=== PATIENT | female | born 1980 | race American Indian/Alaskan Native ===

== ENCOUNTER 2021-07-19 05:50 | Inpatient (IN) | payer OTHER ==
[2021-07-14 11:54] LABS: Basophils # (Auto) 0.1 K/mm3 (0.0-0.1); Basophils % (Auto) 0.9 % (0.0-1.8); Eosinophils # (Auto) 0.5 K/mm3 (0.0-0.4); Eosinophils % (Auto) 7.6 % (0.0-4.3); Hematocrit 32.3 % (30.3-42.9); Hemoglobin 10.8 gm/dl (10.1-14.3); Lymphocytes # (Auto) 1.2 K/mm3 (1.2-5.4); Lymphocytes % (Auto) 17.4 % (13.4-35.0); Mean Corpuscular HGB Conc 34 % (30-34); Monocytes # (Auto) 0.6 K/mm3 (0.0-0.8); Monocytes % (Auto) 8.6 % (0.0-7.3); Platelet Count 557 K/mm3 (140-440); Red Blood Count 4.68 M/mm3 (3.65-5.03); Red Cell Distribution Width 17.1 % (13.2-15.2)
[2021-07-14 12:06] LABS: Blood Urea Nitrogen 8 mg/dL (7-17); Calcium 10.1 mg/dL (8.4-10.2); Hemolysis Index 0
[2021-07-14 12:08] LABS: BUN/Creatinine Ratio 13
[2021-07-14 12:12] LABS: Mean Corpuscular Volume 69 fl (79-97)
--- NOTE | 2021-07-18 14:14 | History and Physical Report ---
History of Present Illness Date of examination: 07/12/21 Date of admission: 07/19/21 Chief complaint: heavy bleeding History of present illness: Pt c/o having fibroids and heavy bleeding and h/o anemia desires definitive therapy via abdominal hysterectomy. HTN DM Social History: Reviewed history from 06/21/2018 and no changes required: Patient is Smoking History: Patient is a former smoker. NO E/T/D Risk Factors: Smoked Tobacco Use: Former smoker Smokeless Tobacco Use: Never HIV High Risk Behavior: no Exercise: yes Seatbelt Use: 100 % [ROS-CCC] Laboratory Results Urine HCG: negative Physical Exam Other Exams Lungs: no rales, rhonchi, or wheezes Heart: S1, S2, no murmur, rub, or gallop Abdomen: soft, non-tender, no masses, bowel sounds normal Abd Mass: mass palpaed just below the unbilicus about 2 figer breaths Skin: no ulcers, xanthomas Extremities: normal alignment, no joint enlargement, crepitus, masses or tenderness; normal tone and strength Past History Past Medical History: other (see hpi) Past Surgical History: Other (see hpi) Social history: other (see hpi) Family history: other (see hpi) Medications and Allergies Allergies Allergy/AdvReac Type Severity Reaction Status Date / Time aspirin Allergy Itching Verified 07/12/21 18:14 Home Medications Medication Instructions Recorded Confirmed Last Taken Type Aspirin [Adult Aspirin] 81 mg PO DAILY 07/15/21 07/15/21 Unknown History Dapagliflozin Propanediol [Farxiga] 25 mg PO DAILY 07/15/21 07/15/21 Unknown History Ferrous Sulfate [Feosol] 325 mg PO QDAY 07/15/21 07/15/21 Unknown History Insulin Glargine,Hum.rec.anlog 20 unit SQ HS 07/15/21 07/15/21 Unknown History [Lantus Solostar] Review of Systems All systems: negative Exam Vital Signs Temp Pulse Resp BP Pulse Ox 98.5 F 102 H 20 133/94 97 07/14/21 11:10 07/14/21 11:10 07/14/21 11:10 07/14/21 11:10 07/14/21 11:10 - Cardiovascular Rhythm: regular Heart Sounds: Present: S1 & S2 - Extremities Extremities: no ischemia - Abdomen Abdomen: Present: soft. Absent: tender, distended - Genitourinary Female Genitourinary: deferred (until EUA) - Psychiatric Psychiatric: appropriate mood/affect Results - Labs 07/14/21 06:00 07/14/21 06:00 Assessment and Plan - Patient Problems (1) Fibroids Current Visit: Yes Status: Acute Plan to address problem: -TO OR for above stated procedure -consents signed and placed on the chart. (2) Menorrhagia with regular cycle Current Visit: Yes Status: Acute Plan to address problem: -TO OR for above stated procedure -consents signed and placed on the chart.
[~2021-07-19 05:50] MED LIST: ceFAZolin/Water 2 GM/20 ML 2 GM/20 ML SYRINGE IV NR
[2021-07-19] MEDS ORDERED: fentaNYL 100 MCG/2 ML INJ ONE ×2 (06:55→07:19)
[2021-07-19] MEDS ORDERED: ONDANSETRON 4 MG/2 ML INJ ONE (06:55)
[2021-07-19] MEDS ORDERED: ROCURONIUM 50 MG/5 ML INJ IV ONE ×2 (06:55→08:32)
[2021-07-19] MEDS ORDERED: LIDOCAINE MPF (2%) 20 MG/1 ML VIAL 5 ML ONE (06:55)
[2021-07-19] MEDS ORDERED: dexAMETHasone 20 MG/5 ML VIAL ONE (06:55)
[2021-07-19] MEDS ORDERED: propofoL 200 MG/20 ML VIAL IV ONE (06:56)
[2021-07-19] MEDS ORDERED: BUPIVACAINE/PF (0.25%) 2.5 MG/ML 30 ML VIAL INFILTRATI ONE (07:18)
[2021-07-19] MEDS ORDERED: dexAMETHasone 4 MG/ML VIAL ONE (07:18)
[2021-07-19] MEDS ORDERED: MIDAZOLAM 2 MG/2 ML INJ ONE (07:19)
[2021-07-19] MEDS ORDERED: ACETAMINOPHEN 500 MG TAB ONE (07:20)
[2021-07-19] MEDS ORDERED: CELECOXIB 200 MG CAP ONE (07:20)
[2021-07-19] MEDS ORDERED: MAGNESIUM OXIDE 400 MG TAB PO ONE (07:21)
[2021-07-19] MEDS ORDERED: MAGNESIUM OXIDE 400 MG TAB PO NR (07:23)
[2021-07-19] MEDS ORDERED: ACETAMINOPHEN 500 MG TAB PO NR (07:23)
[2021-07-19] MEDS ORDERED: HYDROmorphone 1 MG/1 ML INJ IV PRN (07:24)
[2021-07-19] MEDS ORDERED: ONDANSETRON 4 MG/2 ML INJ IV PRN (07:24)
[2021-07-19] MEDS ORDERED: fentaNYL 100 MCG/2 ML INJ IV NR (07:24)
--- NOTE | 2021-07-19 07:25 | Anesthesia Day of Surgery ---
Anesthesia Day of Surgery - Day of Surgery Patient Examined: Yes Patient H&P Reviewed: Yes Patient is NPO: Yes Cardiac Clearance: Yes
[2021-07-19] MEDS: LACTATED RINGERS 1,000 ML IV SCH ×2 (07:26→23:39)
--- NOTE | 2021-07-19 07:31 | Anesthesia Consultation ---
Anesthesia Consult and Med Hx Date of service: 07/19/21 - Pre-Operative Health Status ASA Pre-Surgery Classification: ASA2 Proposed Anesthetic Plan: General Nerve Block: TAP - Pulmonary Hx Smoking: Yes (Former) Hx Pneumonia: Yes (March 2021) - Cardiovascular System Hx Hypertension: Yes Hx Coronary Artery Disease: No (Pericarditis four years ago) Hx Heart Attack/AMI: No (+Cardiac clearance; cardiac records reviewed) - Central Nervous System Hx Psychiatric Problems: No - Gastrointestinal Hx Gastroesophageal Reflux Disease: Yes - Endocrine Hx Non-Insulin Dependent Diabetes: Yes - Hematic Hx Anemia: Yes (Transfused 12/2020) Hx Sickle Cell Disease: No - Other Systems Hx Cancer: No
[2021-07-19] MEDS ORDERED: MIDAZOLAM 2 MG/2 ML INJ IV NR (08:00)
[2021-07-19] MEDS ORDERED: CELECOXIB 200 MG CAP PO NR (08:00)
[2021-07-19] MEDS ORDERED: CITRIC ACID-SOD CITRATE 500 ML IV ONE (08:33)
[2021-07-19] MEDS ORDERED: HYDROmorphone 1 MG/1 ML INJ ONE (08:35)
[2021-07-19] MEDS ORDERED: CITRIC ACID-SOD CITRATE SOLN 500 ML IV SOLN IV ONE (08:40)
[2021-07-19] MEDS ORDERED: SODIUM CHLORIDE 0.9% IRR 1,500 ML BOTTLE IR ONE (08:40)
[2021-07-19] MEDS ORDERED: NEOSTIGMINE 10MG/10 ML INJ MDV ONE (09:24)
[2021-07-19] MEDS ORDERED: GLYCOPYRROLATE 0.4 MG/2 ML INJ ONE (09:24)
--- NOTE | 2021-07-19 10:13 | Operative Report ---
Operative Report Operative Report: Date of procedure: 07/19/2021 Pre-operative diagnosis: Large uterine fibroids Menorrhagia Hypertension Diabetes Post-operative diagnosis: Same Procedure name(s): 1. Exploratory laparotomy 2. Total abdominal hysterectomy 3. Bilateral salpingectomy Surgeon: Alysia Buckner M.D. Stock Cutter: Dr. Mackenzie White Anesthesia: Gen. endotracheal anesthesia EBL: 100 mL Urine output: 400 mL of clear urine out at the end the procedure Fluids: 1500 mL Findings: Enlarged uterus with several fibroids noted largest palpated to be approximately 7 to 8 cm. Grossly normal fallopian tubes and ovaries bilaterally Indications: Patient with a long history of menorrhagia requiring blood transfusions. Patient diagnosed with uterine fibroids. Patient with failed medical therapy for the heavy menstrual bleeding. Patient desired definitive therapy via total hysterectomy. All risks benefits and alternatives were discussed with the patient. Consents were signed and placed on the chart. Procedure: Patient was taken to the operating room wishes placed under general endotracheal anesthesia. She was then prepped and draped in normal sterile fashion. With at this point that a midline umbilical incision was made through previous incisional scar. Incision was made with the scalpel and carried down to the underlying layer of fascia with the scalpel and the Bovie. The fascia was incised in the midline and this incision was extended superiorly and inf eriorly. The peritoneum was entered into sharply and this incision was extended superiorly and inferiorly. The O'Dilshad-O'Marshall retractor was placed. The bowel was packed away with moist wet laps. The uterus was exteriorized. Exploratory laparotomy was performed with the above-stated findings. The attention was turned to the round ligaments bilaterally. The round ligaments were grasped with tripolar instrument cauterized, transected with excellent hemostasis noted. The anterior leaf of the broad ligament was opened and the bladder flap was created. The bladder was dissected off of the lower uterine segment and the cervix. Attention was turned to the tubo-ovarian ligament which was cauterized and transected with excellent hemostasis noted. Attention was turned to the uterine arteries bilaterally which a similar fashion were grasped with Beatriz clamps transected and suture ligated with excellent hemostasis noted. The uterus was then amputated from the cervical stump at this point. And handed off the field. The cardinal uterosacral ligaments and likewise fashion for grasped with Beatriz clamps transected and suture ligated with excellent hemostasis noted. The Zeppelin clamps were then placed below the level of the cervix with care of and taken that the bladder had been dissected off of the lower uterine segment of the uterus. The cervix was then amputated from the vagina. The vaginal cuff angles were secured with Kiesha stitches using 0 Vicryl bilaterally. The remainder of the vaginal cuff was closed using a series of [id number] sutures using 0 Vicryl. Attention was then turned to the fallopian tubes bilaterally which were cauterized with the tripolar instrument transected and handed off for pathology. Excellent hemostasis was noted. The pelvis was then irrigated. Excellent hemostasis was noted. Izaiah l was placed along the incision line of the vaginal cuff. All instruments and laps were removed from the abdomen. All lap counts were correct at this point. The fascia was then closed using 0 Vicryl in a running fashion. The anterior rectus muscles were reapproximated using 0 Vicryl in [id number] sutures. The subcuticular fat was reapproximated with 0 Vicryl in running fashion. The skin was then closed in a subcuticular stitch using 4-0 Monocryl. The patient tolerated the procedure well. Sponge lap and needle counts were all correct 3. Patient received 2 g of Ancef prior to the onset of the procedure. Patient was taken to the recovery room awake and in stable condition.
[2021-07-19] MEDS ORDERED: traMADol 50 MG TAB PO PRN (10:20)
[2021-07-19] MEDS ORDERED: ACETAMINOPHEN 325 MG TAB PO PRN (10:20)
[2021-07-19] MEDS ORDERED: MORPHINE 2 MG/1 ML INJ IV PRN (10:20)
[2021-07-19] MEDS ORDERED: IBUPROFEN 800 MG TAB PO PRN (10:20)
[2021-07-19] MEDS ORDERED: MORPHINE 4 MG/1 ML INJ IV PRN (10:20)
[2021-07-19] MEDS: HYDROmorphone 1 MG/1 ML INJ IV PRN ×4 (10:27→11:00)
[2021-07-19] MEDS ORDERED: DEXTROSE 50% IN WATER (25GM) 50 ML SYRINGE IV PRN (10:36)
[2021-07-19] MEDS ORDERED: diphenhydrAMINE 50 MG/ML VIAL IV ONE (15:32)
--- NOTE | 2021-07-19 15:35 | Post Anesthesia Evaluation ---
- Post Anesthesia Evaluation Patient Participated: Yes Airway Patent: Yes Stable Respiratory Function: Yes Nausea/Vomiting: No Temp > 96.8F: Yes Pain Manageable: Yes Adequeate Hydration: Yes Anesthesia Complications: No Block Receding Appropriately: Yes Patient on Ventilator: No
[2021-07-19] MEDS: ceFAZolin/NS 1 GM/50 ML 1 GM/50 ML BAG IV SCH ×2 (15:39→23:43)
[2021-07-19] MEDS: INSULIN REGULAR, HUMAN 100 UNITS/1 ML SUB-Q SCH (15:51)
[2021-07-20] MEDS: HYDROcodone/ACETAMINOPHEN 5-325 MG TAB PO PRN ×2 (02:12→20:54)
[2021-07-20 04:27] LABS: Hematocrit 31.6 % (30.3-42.9); Hemoglobin 10.1 gm/dl (10.1-14.3)
[2021-07-20] MEDS: INSULIN REGULAR, HUMAN 100 UNITS/1 ML SUB-Q SCH ×2 (05:24)
--- NOTE | 2021-07-20 09:46 | Progress Note ---
Assessment and Plan - Patient Problems (1) Fibroids Current Visit: Yes Status: Acute (2) Menorrhagia with regular cycle Current Visit: Yes Status: Acute (3) S/P NAOMI (total abdominal hysterectomy) Current Visit: Yes Status: Acute Plan to address problem: -doing well -continue IS -ambulate in halls today -anticpate d/c in the am (4) HTN (hypertension), benign Current Visit: Yes Status: Acute Plan to address problem: -no meds at this time -con't to monitor (5) Diabetes Current Visit: Yes Status: Acute Qualifiers: Diabetes mellitus type: type 2 Diabetes mellitus complication status: without complication Plan to address problem: -con't SSI until d/c home -resume normal meds upon d/c home Subjective - Subjective Date of service: 07/20/21 Principal diagnosis: POD #1 s/p NAOMI with BS 2)DM 3)HTN Interval history: Pt states she is feeling well. She is tolerating her diet this am of regular food. She states she thinks her bp was elevated due to the discomfort of the catheter. States she has not been on bp meds in over a year since weight loss. Will d/c meds ordered and monitor for now. Review of cardiac clearance letter does not indicate pt is on any meds for HTN an she has been normotensive both in the cardiac clinic as well as my office. Details of sx again reviewed with pt and she was presented with pictures of the findings. Again all questions were addressed and answered. Patient reports: appetite normal, voiding normally, pain well controlled, ambulating normally, no dizzy ambulation, no flatus Objective - Vital Signs Latest vital signs: Vital Signs Temp Pulse Resp BP Pulse Ox 07/20/21 08:00 100 07/20/21 07:54 97.6 F 75 18 148/90 95 07/20/21 04:11 98.2 F 71 20 160/86 97 07/20/21 00:53 98.2 F 70 20 167/97 97 07/19/21 20:30 97 07/19/21 15:46 97.4 F L 72 20 172/99 98 07/19/21 12:30 16 99 07/19/21 11:35 97.9 F 72 16 137/82 97 07/19/21 11:15 78 14 131/80 98 07/19/21 11:00 75 13 133/84 97 07/19/21 10:45 73 13 138/82 97 07/19/21 10:30 72 15 137/80 96 07/19/21 10:20 68 13 143/82 100 07/19/21 10:15 69 15 155/80 100 07/19/21 10:11 97.4 F L 68 15 150/84 100 Intake and Output 07/19/21 07/20/21 07/20/21 22:59 06:59 14:59 Intake Total 1650 240 120 Output Total 1550 3200 Balance 100 -2960 120 Intake: IV 1050 ANCEF/NS 1 GM/50 ML 1 gm 50 In 50 ml @ 100 mls/hr IV Q8H FRANKY Rx#:[id number] Lactated Ringers 1,000 ml 1000 @ 125 mls/hr IV DIRECT FRANKY Rx#:[id number] Oral 600 240 120 Output: Urine 1550 3200 Indwelling Catheter 1550 2900 Uretheral (Brito) 300 Other: Total, Intake Amount 240 240 120 Total, Output Amount 800 300 Voiding Method Indwelling Catheter Toilet - Exam Cardiovascular: Present: Normal S1, Normal S2 Lungs: Present: Clear to auscultation, Normal air movement Abdomen: Present: normal appearance, soft, normal bowel sounds. Absent: distention, tenderness, guarding Incision: Present: normal, dry, intact (open to air with surgical glue in place. no s/sx of infecton or inflammation.) - Labs Labs: Abnormal lab results 07/19/21 07/19/21 07/19/21 Range/Units 10:16 15:41 23:56 POC Glucose 170 H 301 H 264 H (70-105) mg/dL 07/20/21 Range/Units 04:52 POC Glucose 168 H (70-105) mg/dL
[2021-07-20] MEDS ORDERED: NON-FORMULARY EACH (Dapagliflozin Propanediol [Farxiga] 10 MG Tablet) PO SCH (10:00)
[2021-07-20] MEDS ORDERED: SIMETHICONE 80 MG CHEW TAB PO PRN (12:18)
[2021-07-21] MEDS: INSULIN REGULAR, HUMAN 100 UNITS/1 ML SUB-Q SCH ×2 (06:55→06:56)
--- NOTE | 2021-07-21 08:29 | Discharge Summary ---
Providers - Providers Date of Admission: 07/19/21 05:50 Date of discharge: 07/21/21 Attending physician: SUNNI VIZCAINO Primary care physician: NASRA SUAREZ Hospitalization Reason for admission: other (naomi with bs) Procedure: other (NAOMI with BS) Procedure details: see op notes Incision: normal, dry, intact Condition at discharge: Good Disposition: 01 HOME / SELF CARE / HOMELESS - Discharge Diagnoses (1) Fibroids Status: Acute (2) Menorrhagia with regular cycle Status: Acute (3) S/P NAOMI (total abdominal hysterectomy) Status: Acute (4) HTN (hypertension), benign Status: Acute (5) Diabetes Status: Acute Qualifiers: Diabetes mellitus type: type 2 Diabetes mellitus complication status: without complication Plan - Discharge Medications Prescriptions: Ibuprofen [Motrin 800 MG tab] 800 mg PO Q8HR PRN #30 tablet PRN Reason: Pain, Moderate (4-6) oxyCODONE /ACETAMINOPHEN [Percocet 5/325] 1 tab PO Q4HR #30 tab - Provider Discharge Summary Activity: routine, no sex for 6 weeks, no heavy lifting 4 weeks, no strenuous exercise Diet: routine Instructions: routine Additional instructions: [] Smoking cessation referral if applicable(refer to patient education folder for contact #) [] Refer to [facility]'s [facility] Booklet Call your doctor immediately for: * Fever > 100.5 * Heavy vaginal bleeding ( >1 pad per hour) * Severe persistent headache * Shortness of breath * Reddened, hot, painful area to leg or breast * Drainage or odor from incision. * Keep incision clean and dry at all times and follow doctor's instructions regarding bathing/showering - Follow up plan Follow up: NASRA SUAREZ MD [Primary Care Provider] - 7 Days Forms: [facility] Discharge Summary
[2021-07-21 12:23] VITALS: BP 141/92
== END 2021-07-21 11:45 | disposition home or self-care (01) | DRG 743 ==
LOC: 3A 05:50 → OB 10:51
PROVIDERS: ADMIT Obstetrics & Gynecology; ATTEND Obstetrics & Gynecology
PROC: 0UT90ZZ Resection of Uterus, Open Approach (ICD-10-PCS; principal; 2021-07-19)
PROC: 0UT70ZZ Resection of Bilateral Fallopian Tubes, Open Approach (ICD-10-PCS; 2021-07-19)
DX: D25.9 Leiomyoma of uterus, unspecified (principal); I10 Essential (primary) hypertension; E11.9 Type 2 diabetes mellitus without complications; Z88.6 Allergy status to analgesic agent; Z88.5 Allergy status to narcotic agent; Z20.822 Contact with and (suspected) exposure to COVID-19; Z87.891 Personal history of nicotine dependence; K21.9 Gastro-esophageal reflux disease without esophagitis; D64.9 Anemia, unspecified
CPT/HCPCS: 36415; 64450; 80048; 82962; 84703; 85014; 85018; 85025; 86850; 86900; 86901; 88302; 88307; G0378; J0690; J1100; J1170; J1200; J1815; J2250; J2270; J2405; J2704; J2710; J3010; J7120; U0003